=== PATIENT | female | born 1935 | race Caucasian/White ===

== ENCOUNTER → 2022-04-19 | Outpatient (CLI) | payer MEDICARE | END | disposition short-term general hospital (02) | LOC: EMS 11:08 | DX: R06.03 Acute respiratory distress (principal); R32 Unspecified urinary incontinence; R46.89 Other symptoms and signs involving appearance and behavior | CPT/HCPCS: A0425; A0429 ==

== ENCOUNTER 2022-04-27 21:55 | Outpatient (CLI) | payer MEDICARE | END 2022-04-27 21:56 | disposition short-term general hospital (02) | LOC: EMS 21:55 | DX: R06.02 Shortness of breath (principal) | CPT/HCPCS: A0425; A0429 ==

== ENCOUNTER 2022-04-28 05:35 | Outpatient (CLI) | payer MEDICARE | END 2022-04-28 05:36 | disposition EMS.NT | LOC: EMS 05:35 | DX: R06.02 Shortness of breath (principal); Z99.81 Dependence on supplemental oxygen ==

== ENCOUNTER 2022-04-29 02:27 | Outpatient (CLI) | payer MEDICARE | END 2022-04-29 02:28 | disposition E | LOC: EMS 02:27 ==